=== PATIENT | female | born 1985 ===

== ENCOUNTER 2022-08-17 15:03 | Outpatient (REF) | payer OTHER, SELFPAY ==
--- NOTE | ~2022-08-17 | US_ITS ---
EXAM: Pelvic Ultrasound CLINICAL INDICATION: Amenorrhea COMPARISON: None available TECHNIQUE: The pelvis was evaluated using transabdominal and transvaginal imaging. FINDINGS: The uterus measures 6.8 x 2.4 x 3.7 cm in longitudinal by AP by transverse dimension. The endometrial stripe is not thickened and measures 0.6 cm. There is a 3 mm echogenic focus noted within the posterior endometrium, nonspecific. The cervix measures approximately 3 cm in length. Nabothian cyst noted within the cervix. The left ovary measures approximately 2.9 x 2.1 x 1.6 cm and contains a 1.5 cm simple appearing cyst. The right ovary measures approximately 2.3 x 1.3 x 1.7 cm and contains a punctate echogenic focus, possibly a tiny calcification. There is a small amount of free fluid in the pelvis. US/US pelvic and transvaginal IMPRESSION: 1. Endometrial stripe measures 6 mm in thickness. There is a 3 mm echogenic focus noted within the posterior endometrium. This is nonspecific but may represent a small polyp or calcification. Attention on follow-up imaging recommended. Alternatively, direct inspection can be obtained if clinically indicated. 2. 1.5 cm simple appearing left ovarian cyst. 3. Small amount of free pelvic fluid, likely physiologic in a female of this age.
== END 2022-08-17 15:04 | disposition home or self-care (01) ==
LOC: HO.US 15:03
PROVIDERS: Visit Provider Nurse Practitioner Family
DX: N91.2 Amenorrhea, unspecified (principal)
CPT/HCPCS: 76830; 76856

== ENCOUNTER 2023-09-25 06:23 | Outpatient (REF) | payer SELFPAY ==
--- NOTE | ~2023-09-25 | CT_ITS ---
EXAMINATION: CT ABDOMEN AND PELVIS WITH CONTRAST CLINICAL INFORMATION: Chronic pain. COMPARISON: None available. TECHNIQUE: Multidetector volumetric images were obtained from the superior aspect of the liver through the pubic symphysis following administration 85 mL of Omnipaque 350 intravenous contrast. Sagittal and coronal reformatted images were obtained on the technologist's workstation. Oral contrast: Yes This CT examination was performed using dose optimization techniques as appropriate, variously including the following: *Automated exposure control *Adjustment of mA and/or kV according to patient size (this includes techniques or standardized protocols for targeted exams where dose is matched to indication/reason for exam; i.e. extremities or head) *Use of iterative reconstruction technique DLP: 249 mGy-cm FINDINGS: LUNG BASES: The visualized lung bases are unremarkable. LIVER, GALLBLADDER, AND BILIARY TREE: The liver is normal in size, shape, and attenuation. No focal hepatic lesion or biliary ductal dilatation is present. The gallbladder is unremarkable with no evidence of radiopaque gallstones, gallbladder wall thickening, or obvious pericholecystic inflammatory changes. PANCREAS: Unremarkable. SPLEEN: Unremarkable. ADRENAL GLANDS: Unremarkable. KIDNEYS AND URETERS: The kidneys are normal in size, shape, and attenuation. No hydronephrosis, hydroureter, or calculi seen. No perinephric stranding. BLADDER: Unremarkable. GASTROINTESTINAL TRACT: The small and large bowel are unremarkable. The appendix is unremarkable. ABDOMINAL WALL: No significant hernia is appreciated. LYMPH NODES: Normal. VASCULAR: Unremarkable. PELVIC VISCERA: Unremarkable. OSSEOUS STRUCTURES: Unremarkable. CT/CT abdomen pelvis w IV con IMPRESSION: Normal CT scan abdomen and pelvis. Fleischner guidelines were followed.
[2023-09-25] MEDS: iohexoL 350 MG/ML 100 ML INFUS..BTL IV (09:23)
[2023-09-25] MEDS: Barium Sulfate Oral (Vanilla) 450 ML ORAL.SUSP 900 ML PO (09:24)
== END 2023-09-25 06:24 | disposition home or self-care (01) ==
LOC: HO.CT 06:23
PROVIDERS: Visit Provider Surgery
DX: G89.29 Other chronic pain (principal)
CPT/HCPCS: 74177; Q9967

== ENCOUNTER 2023-10-09 09:10 | Outpatient (AMB) | payer SELFPAY ==
--- NOTE | 2023-10-09 09:20 | MHC.OFFVIS ---
Vital Signs 10/09/23 09:27 Height 5 ft 3 in Weight 99 lb BMI 17.5 BP 119/81 Blood Pressure Location Rt radial Position Sitting Pulse 80 Intake Visit Reasons: Discuss Abd CT~ 09-25-23 Intake Note: Patient here to discuss abdomen CT results. ABD CT: 09-25-23. Patient c/o: on and off abdominal pain. Denies nausea, diarrhea, constipation. 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 Concern was for possible irritable bowel syndrome or inflammatory bowel disease. Patient's symptoms persist. CT scan reading was within normal limits. Chart was reviewed and patient evaluated [facility] Social History (Updated 10/09/23 @ 09:26 by OMER Douglas) Alcohol intake: never Patient Tobacco Use Status: Never used Tobacco Physical Exam Vital Signs: Last Vital Signs Pulse 80 10/09/23 09:27 BP 119/81 10/09/23 09:27 BMI result Body Mass Index 17.5 Const Other: Patient was very thin. She states that many of her family members are similarly thin. GI Other: Abdomen is soft, scaphoid, benign Assessment & Plan Assessment & Plan (1) Chronic abdominal pain: Code(s): R10.9 - Unspecified abdominal pain; G89.29 - Other chronic pain Category: Surgical Plan A current recommendation is for the patient undergo GI consultation. Arrangements will be made with Dr. Pollard is office. The concern is that the patient may have underlying GI issues ranging from irritable bowel syndrome to inflammatory bowel disease. Arrangements were made for this. Patient will otherwise follow-up p.r.n.. Coding Level of Care Code New Pt Level 4 (48318) Diagnoses Chronic abdominal pain R10.9; G89.29
[2023-10-09 09:27] VITALS: BP 119/81; PULSE 80; BMI 17.5
== END 2023-10-09 09:38 | disposition home or self-care (01) ==
PROVIDERS: Visit Provider Surgery
DX: R10.9 Unspecified abdominal pain (principal); G89.29 Other chronic pain
CPT/HCPCS: 99203

== ENCOUNTER → 2023-10-09 09:10 | Outpatient (BNVA) | payer SELFPAY | PROVIDERS: Visit Provider Surgery | DX: R10.9 Unspecified abdominal pain (principal); G89.29 Other chronic pain | CPT/HCPCS: 99202 ==